=== PATIENT | female | born 1970 | race Caucasian/White ===

== ENCOUNTER 2016-12-23 17:33 | Emergency (ER) | payer OTHER ==
[~2016-12-23] VITALS: Ht 157.5 cm; Wt 147.2 kg
[~2016-12-23 17:33] MED LIST: ALEVE220 MG PO; ASPIR-TRIN325 M1 PO; ATIVAN1 MG PO; AUGMENTIN875 MG PO; BENTYL20 MG PO; BUSPIRONE; Benadryl PO; CEFTIN500 MG PO; COMBIVENT INH14.7 GM IH; COMBIVENT RESPIM4 GM IH; CYMBALTA60 MG PO; Combivent IH; DIAZEPAM5 MG PO; DITROPAN XL5 MG PO; FLEXERIL10 MG PO; FLOVENT 11120 INHALA IH; Flovent 110 mcg IH; GABAPENTIN300 MG PO; GLUCOPHAGE1000 M1 PO; GLUCOPHAGE1000 MG PO; HYDRODIURIL,O12.5 M2 PO; LEVOTHYROXINE50 MCG PO; MACROBID100 MG PO; MELOXICAM15 MG PO; METFORMIN HCL1000 MG PO; NAPROXEN500 MG PO; OPANA ER10 MG PO; OXYCODONE HCL10 MG PO; OXYCODONE HCL15 MG PO; OXYCODONE PO; OXYCODONE15 MG PO; OXYCONTIN10 MG PO; OXYCONTIN40 MG PO; OxyCODONE PO; PHENTERMINE H37.5 MG PO; PREDNISONE20 MG PO; PREDNISONE50 MG PO; PROVENTIL,2.5 MG/3 M IH; PYRIDIUM100 MG PO; Robitussin DM PO; SPIRIVA1 INHALATI IH; SYMBICORT60 INHALAT IH; TIZANIDINE HCL4 M1 PO; TOPIRAMATE25 MG PO; VALIUM5 MG PO; VENTOLIN HFA18 GM IH; ZESTRIL,PRINIVI20 MG PO; ZOFRAN4 MG PO; Zithromax PO; predniSONE PO
[2016-12-23 19:34] VITALS: BP 146/88
== END 2016-12-23 20:03 | disposition home or self-care (01) ==
LOC: EME 17:33
DX: M25.511 Pain in right shoulder (principal)
CPT/HCPCS: 73030; 99281; 99284; J3010

== ENCOUNTER 2017-01-16 09:32 | Emergency (ER) | payer OTHER ==
[~2017-01-16] VITALS: Ht 160 cm; Wt 146.1 kg
[2017-01-16 10:31] LABS: EOSINOPHIL (%) 0.7 % (0-5); HEMATOCRIT 35.7 % (36.0-46.0); LYMPHOCYTE COUNT 0.8 K/uL (1.0-2.8); MCH 28.8 PG (29.0-34.0); MCHC 33.1 G/DL (30.0-36.0); MCV 87.1 FL (83-99); MEAN PLAT.VOLUME 11.2 uM^3 (9.5-12.4); MONOCYTE (%) 11.8 % (3-12); MONOCYTE COUNT 0.3 K/uL (0-0.8); NEUTROPHIL (%) 59.2 % (45-76); NEUTROPHIL COUNT 1.7 K/uL (1.8-6.4); PLATELET COUNT 217 K/uL (156-360); RBC DIS.WIDTH-CV 13.5 % (11.8-14.6); RBC DIS.WIDTH-SD 41.9 % (39-53); WHITE BLOOD COUNT 2.9 K/uL (4.1-10.2)
[2017-01-16 10:42] LABS: CHLORIDE 102 mEq/L (99-109); SODIUM 140 mEq/L (136-147)
[2017-01-16 10:44] LABS: GLUCOSE 109 mg/dL (70-99)
[2017-01-16 10:46] LABS: ANION GAP 10 MEQ/L (2-14); TOTAL BILIRUBIN 0.3 mg/dL (0.0-1.0)
[2017-01-16 10:48] LABS: ALKALINE PHOSPHATASE 90 IU/L (3-129); GFR ESTIMATE (CALCULATED) > 59 mL/min/
[2017-01-16 10:49] LABS: UREA NITROGEN (BUN) 11 mg/dL (9-23)
[2017-01-16 10:52] LABS: TROP-I INTERPRETATION NEGATIVE; TROPONIN-I < 0.01 ng/mL (0.0-0.30)
[2017-01-16] MEDS ORDERED: PREDNISONE50 MG PO (14:49)
[2017-01-16] MEDS ORDERED: SYMBICORT60 INHALAT IH (14:49)
[2017-01-16] MEDS ORDERED: COMBIVENT RESPIM4 GM IH (14:49)
[2017-01-16] MEDS ORDERED: LEVAQUIN500 MG PO (14:49)
[2017-01-16] MEDS ORDERED: PROVENTIL,2.5 MG/3 M IH (14:49)
[2017-01-16] MEDS ORDERED: VENTOLIN HFA18 GM IH (14:49)
[2017-01-16 15:42] VITALS: BP 116/67
== END 2017-01-16 15:45 | disposition home or self-care (01) ==
LOC: EME 09:32
PROVIDERS: Emergency Medicine
DX: J44.0 Chronic obstructive pulmonary disease with (acute) lower respiratory infection (principal); J20.9 Acute bronchitis, unspecified; J44.1 Chronic obstructive pulmonary disease with (acute) exacerbation; R07.89 Other chest pain; E66.9 Obesity, unspecified; Z68.43 Body mass index [BMI] 50.0-59.9, adult; J45.909 Unspecified asthma, uncomplicated; G89.29 Other chronic pain; E11.9 Type 2 diabetes mellitus without complications; I10 Essential (primary) hypertension; Z86.73 Personal history of transient ischemic attack (TIA), and cerebral infarction without residual deficits
CPT/HCPCS: 71020; 80053; 84484; 85025; 93005; 94644; 99281; 99285; J2930

== ENCOUNTER 2018-07-13 22:20 | Emergency (ER) | payer OTHER ==
[~2018-07-13] VITALS: Ht 157.5 cm; Wt 145.0 kg
[~2018-07-13 22:20] MED LIST changes: +LEVAQUIN500 MG PO
[2018-07-13 23:17] LABS: BASOPHIL (%) 0.4 % (0-1); EOSINOPHIL (%) 3.1 % (0-5); EOSINOPHIL COUNT 0.3 K/uL (0-0.3); HEMATOCRIT 38.4 % (36.0-46.0); HEMOGLOBIN 12.6 G/DL (11.9-15.5); IMMATURE GRANULOCYTE (%) 0.3 % (0.0-0.7); LYMPHOCYTE COUNT 2.6 K/uL (1.0-2.8); MCH 28.7 PG (29.0-34.0); MCHC 32.8 G/DL (30.0-36.0); MCV 87.5 FL (83-99); MONOCYTE (%) 7.9 % (3-12); MONOCYTE COUNT 0.8 K/uL (0-0.8); NEUTROPHIL (%) 61.3 % (45-76); PLATELET COUNT 271 K/uL (156-360); RBC DIS.WIDTH-CV 13.7 % (11.8-14.6); RBC DIS.WIDTH-SD 43.8 % (39-53); RED BLOOD COUNT 4.39 M/uL (3.80-5.20); WHITE BLOOD COUNT 9.7 K/uL (4.1-10.2)
[2018-07-13 23:20] LABS: ALBUMIN 4.3 g/dL (3.2-4.8); CHLORIDE 103 mEq/L (99-109); POTASSIUM 4.6 mEq/L (3.7-5.4); SODIUM 138 mEq/L (136-147)
[2018-07-13 23:22] LABS: GLUCOSE 108 mg/dL (70-99); TOTAL PROTEIN 7.2 g/dL (6.4-8.3)
[2018-07-13 23:24] LABS: TOTAL BILIRUBIN 0.4 mg/dL (0.0-1.0)
[2018-07-13 23:26] LABS: ALKALINE PHOSPHATASE 81 IU/L (3-129); CREATININE 0.9 mg/dL (0.6-1.3); GFR ESTIMATE (CALCULATED) > 59 mL/min/
[2018-07-13 23:27] LABS: UREA NITROGEN (BUN) 18 mg/dL (9-23)
[2018-07-13 23:28] LABS: AST (GOT) 13 IU/L (2-34)
[2018-07-13 23:29] LABS: ALT (GPT) 16 IU/L (3-49)
[2018-07-14 02:03] VITALS: BP 159/71
== END 2018-07-14 02:36 | disposition home or self-care (01) ==
LOC: EME 22:20
PROVIDERS: Emergency Medicine
DX: M54.5 Low back pain (principal); G89.29 Other chronic pain; G89.18 Other acute postprocedural pain; E11.9 Type 2 diabetes mellitus without complications; F32.9 Major depressive disorder, single episode, unspecified; F41.9 Anxiety disorder, unspecified; I10 Essential (primary) hypertension; J43.9 Emphysema, unspecified; Z86.73 Personal history of transient ischemic attack (TIA), and cerebral infarction without residual deficits; J45.909 Unspecified asthma, uncomplicated; Z88.5 Allergy status to narcotic agent; Z88.1 Allergy status to other antibiotic agents
CPT/HCPCS: 80053; 81003; 85025; 99281; 99284; J1170